=== PATIENT | female | born 1980 | race Two or more races ===

== ENCOUNTER 2021-09-09 17:12 | Emergency (ER) | payer MEDICAID, OTHER ==
[~2021-09-09] VITALS: Ht 162.6 cm; Wt 132.0 kg
[2021-09-09 17:50] VITALS: BP 137/85
[2021-09-09] MEDS ORDERED: KETOROLAC TROMETH 30 MG/ML 1ML VIAL IM ONE (20:00)
== END 2021-09-09 21:27 | disposition home or self-care (01) ==
LOC: ER 17:12
DX: M54.2 Cervicalgia (principal); M54.50 Low back pain, unspecified; M48.00 Spinal stenosis, site unspecified
CPT/HCPCS: 72125; 72131; 96372; 99284; J1885

== ENCOUNTER 2021-09-23 17:39 | Emergency (ER) | payer MEDICAID ==
[~2021-09-23] VITALS: Ht 162.6 cm; Wt 146.0 kg
[2021-09-24] MEDS ORDERED: methylPREDNISolone SOD SUCC 125 MG/2 ML VL IM ONE (01:00)
[2021-09-24] MEDS ORDERED: KETOROLAC TROMETH 60MG/2ML VIAL IM ONE (01:00)
[2021-09-24 01:47] VITALS: BP 120/58
== END 2021-09-24 02:54 | disposition home or self-care (01) ==
LOC: ER 17:39
DX: M25.512 Pain in left shoulder (principal); M79.671 Pain in right foot
CPT/HCPCS: 73620; 96372; 99284; J1885; J2930

== ENCOUNTER 2023-02-07 17:26 | Emergency (ER) | payer MEDICAID ==
[~2023-02-07] VITALS: Ht 160 cm; Wt 118.0 kg
[2023-02-07 19:06] VITALS: BP 125/72; PULSE 80; RESP 18; O2SAT 98
== END 2023-02-07 21:41 | disposition left against medical advice (07) ==
LOC: ER 17:26
DX: R51.9 Headache, unspecified (principal); Z53.21 Procedure and treatment not carried out due to patient leaving prior to being seen by health care provider

== ENCOUNTER 2024-10-10 20:02 | Emergency (ER) | payer MEDICAID ==
[~2024-10-10] VITALS: Ht 162.6 cm; Wt 130.0 kg
[2024-10-10 20:06] VITALS: BP 174/92; PULSE 85; RESP 20; TEMP 98; O2SAT 95
--- NOTE | 2024-10-10 21:50 | ED.PDOC ---
Psychiatric HPI Comments 44 year old female presents to ER with complaints of anxiety x 1 day. Patient with PMH of anxiety and depression states she's been feeling anxious/tearful x 1 day. Notes that she ran out of her Zoloft 300 mg that she take QD 3 weeks ago and notes this medication was supposed to be delivered to her home today by her pharmacy but never got delivered. Patient is requesting a dose of Zoloft 300 mg in ER today and notes she is going to f/u with her pharmacy tomorrow with regards to her Zoloft prescription that never got delivered today. Patient presents to ER tearful on arrival, in mild distress. Denies shortness of breath, chest pain, n/v, palpitations, SI/HI or any further symptoms/complaints Chief Complaint: Mental Health Time Seen by MD: 20:11 Primary Care Provider: [facility] Benita Hirsch Notes: Nurses Notes, Medications, Allergies Information Source: Patient Mode of Arrival: Ambulatory Past Medical History PAST MEDICAL HISTORY: Anxiety, Depression, HTN, Thyroid Surgical History: Appendectomy, Hysterectomy, Tonsillectomy Family History Family History: Unknown Social History Smoker: Non-Smoker Alcohol: Denies ETOH Use Drugs: Denies Drug Use Lives In: Home Constitutional: denies: chills, diaphoresis, fatigue, fever, malaise, sweats, weakness, others EENTM: denies: blurred vision, double vision, ear bleeding, ear discharge, ear drainage, ear pain, ear ringing, eye pain, eye redness, hearing loss, mouth pain, mouth swelling, nasal discharge, nose bleeding, nose congestion, nose pain, photophobia, tearing, throat pain, throat swelling, voice changes, others Respiratory: denies: cough, hemoptysis, orthopnea, SOB at rest, shortness of breath, SOB with excertion, stridor, wheezing, others Cardiovascular: denies: chest pain, dizzy spells, diaphoresis, Dyspnea on exertion, edema, irregular heart beat, left arm pain, lightheadedness, palpitations, PND, syncope, others Gastrointestinal: denies: abdomen distended, abdominal pain, blood streaked bowels, constipated, diarrhea, dysphagia, difficulty swallowing, hematemesis, melena, nausea, poor appetite, poor fluid intake, rectal bleeding, rectal pain, vomiting, others Genitourinary: denies: abnormal vagina bleeding, burning, dyspareunia, dysuria, flank pain, frequency, hematuria, incontinence, pain, , vagina discharge, urgency, others Neurological: denies: dizziness, fainting, headache, left sided numbness, left sided weakness, numbness, paresthesia, pre-existing deficit, right sided numbness, right sided weakness, seizure, speech problems, tingling, tremors, weakness, others Musculoskeletal: denies: back pain, gout, joint pain, joint swelling, muscle pain, muscle stiffness, neck pain, others Integumetry: denies: bruises, change in color, change in hair/nails, dryness, laceration, lesions, lumps, rash, wounds, others Allergic/Immunocompromised: denies: Difficulty Healing, Frequent Infections, Hives, Itching, others Hematologic/Lymphatic: denies: anemia, blood clots, easy bleeding, easy bruising, swollen glands, others Endocrine: denies: excessive hunger, excessive sweating, excessive thirst, excessive urination, flushing, intolerance to cold, intolerance to heat, unexplained weight gain, unexplained weight loss, others Psychiatric: reports: others (As stated in HPI) Physical Exam General Appearance: Mild Distress (patient tearful), Obese HEENT: Normal ENT Inspection, PERRL/EOMI, Pharynx Normal, TMs Normal Neck: Full Range of Motion, Non-Tender, Normal Respiratory: Chest Non-Tender, Lungs Clear, No Accessory Muscle Use, No Respiratory Distress, Normal Breath Sounds Cardiovascular: No Murmur, No Gallop, Regular Rate/Rhythm Breast Exam: Deferred Gastrointestinal: NOT DONE Genitalia: Deferred Pelvic: Deferred Rectal: Deferred Extremities: Normal capillary refill, Normal range of motion Neurologic: Alert, horse breeder II-XII nml as Tested, No Motor Deficits, No Sensory Deficits Cerebellar Function: Normal Reflexes: Normal Skin: Dry, Normal Color, Warm Peripheral Pulses: 2+ Radial (R), 2+ Radial (L), 2+ Brachial (R), 2+ Brachial (L) Lymphatic: No Adenopathy Was a procedure done? Was a procedure done?: No Sedation Sedation?: No Psych Differential Dx Intoxication Differential Dx: Hallucinations, Seizures, CVA, Dehydration X-Ray, Labs, Meds, VS Vital Signs Date Time Temp Pulse Resp B/P (MAP) Pulse Ox O2 Delivery O2 Flow Rate FiO2 8/20/25 20:06 98.0 85 20 174/92 95 98.0 Zoloft 300 mg p.o. ordered Patient states that she is going to follow up with her pharmacy tomorrow with regards to her prescribed Zoloft 300 mg QD that never got delivered today Advised to follow up with PCP and Psychiatry in 1-2 days Patient alert and oriented x4 prior to discharge. Patient verbalized understanding and agreeable with current plan of care Advised to return to ER immediately if symptoms worsen Time of 1ST Reevaluation: 21:20 Reevaluation 1ST: N/A Patient Education/Counseling: Diagnosis, Treatment, Prognosis, Need For Follow Up Family Education/Counseling: No Family Present Departure 1 Departure Time of Disposition: 21:48 Impression: Primary Impression: Medication refill Additional Impressions: Hx of major depression History of anxiety Disposition: 01 HOME / SELF CARE / HOMELESS Condition: Stable Discharged With: Friend Critical Care Note Critical Care Time?: No Stability Stability form required: No Heart Score Heart Score: Heart Score Response (Comments) Value History N/A 0 EKG N/A 0 Age N/A 0 Risk Factors N/A 0 Troponin N/A 0 Total 0 VICTOR MANUEL GARZA Oct 10, 2024 21:50
[2024-10-10] MEDS: SERTRALINE HCL 50 MG TAB PO ONE (22:04)
== END 2024-10-10 22:10 | disposition home or self-care (01) ==
LOC: ER 20:02
DX: F41.9 Anxiety disorder, unspecified (principal); F32.A Depression, unspecified; I10 Essential (primary) hypertension; Z76.0 Encounter for issue of repeat prescription; Z90.49 Acquired absence of other specified parts of digestive tract; Z90.710 Acquired absence of both cervix and uterus